=== PATIENT | male | born 1975 ===

== ENCOUNTER 2024-09-25 08:11 | Emergency (ER) | payer SELFPAY ==
[2024-09-25] MEDS: Diphtheria,Pertussis(Acell),Tetanus Vaccine 0.5 ML Syringe IM ONE (08:41)
== END 2024-09-25 08:57 | disposition home or self-care (01) ==
LOC: DL.ED 08:11
DX: T33.531A Superficial frostbite of right finger(s), initial encounter (principal); Z88.0 Allergy status to penicillin; X31.XXXA Exposure to excessive natural cold, initial encounter; Z23 Encounter for immunization
CPT/HCPCS: 90471; 90715; 99283; 99283-25